=== PATIENT | female | born 1955 | race Caucasian/White ===

== ENCOUNTER 2020-12-06 07:17 | Day surgery (SDC) | payer OTHER, MEDICAID ==
[~2020-12-06] VITALS: Ht 167.6 cm; Wt 75.7 kg
[2020-12-06] MEDS ORDERED: BENZOCAINE 20% 0.5mL UD SPRAY MM ONE (07:46)
[2020-12-06] MEDS ORDERED: MIDAZOLAM HCL 5 MG/5 ML VIAL ONE (07:47)
[2020-12-06] MEDS ORDERED: fentaNYL CITRATE/PF 100 MCG/2 ML AMP ONE (07:47)
[2020-12-06 08:25] LABS: CALCIUM 9.8 mg/dL (8.4-11.0)
[2020-12-06 08:30] LABS: ALBUMIN 3.5 g/dL (3.4-4.8); TOTAL BILIRUBIN 0.2 mg/dL (0.0-1.0)
[2020-12-06 08:33] LABS: CREATININE 8.14 mg/dL (0.55-1.30)
[2020-12-06 13:49] VITALS: BP_SYST 175
== END 2020-12-06 13:28 ==
LOC: SDS 07:17 → SMU 07:18 → SDS 13:28
PROVIDERS: ATTEND Internal Medicine
DX: R11.2 Nausea with vomiting, unspecified (principal); K20.90 Esophagitis, unspecified without bleeding; K29.70 Gastritis, unspecified, without bleeding; D64.9 Anemia, unspecified; G20 Parkinson's disease; N18.6 End stage renal disease; Z99.2 Dependence on renal dialysis; Z79.899 Other long term (current) drug therapy; Z20.822 Contact with and (suspected) exposure to COVID-19
CPT/HCPCS: 36415; 43239; 80053; 87426; 88305; 88312; 88313; 99152; G0378; J2250; J3010